=== PATIENT | female | born 1945 | race Caucasian/White ===

== ENCOUNTER → 2017-10-13 | Outpatient (CLI) | payer MEDICARE, BC ==
[~2017-10-13] MED LIST: Flonase 0.05% N16 GM; ROSU5 PO; Tessalon200 MG; Zegerid 40 MG1 EACH PO
[2017-10-15 06:00] LABS: Source Cervix
== END ==
LOC: LAB SHORT 14:40 → LAB 14:40
PROVIDERS: Family Medicine
DX: Z12.4 Encounter for screening for malignant neoplasm of cervix (principal)
CPT/HCPCS: G0145

== ENCOUNTER → 2020-06-18 | Outpatient (CLI) | payer MEDICARE, BC | END | disposition home or self-care (01) | LOC: LAB SHORT 17:09 → PLD 17:09 | DX: D48.5 Neoplasm of uncertain behavior of skin (principal) | CPT/HCPCS: 88305 ==

== ENCOUNTER → 2020-11-21 | Outpatient (CLI) | payer MEDICARE, BC | END | disposition home or self-care (01) | LOC: LAB 14:30 → LAB SHORT 14:30 | PROVIDERS: Family Medicine | DX: Z12.4 Encounter for screening for malignant neoplasm of cervix (principal) | CPT/HCPCS: G0145 ==

== ENCOUNTER → 2021-12-04 | Outpatient (CLI) | payer MEDICARE, BC | END | disposition home or self-care (01) | LOC: LAB SHORT 11:21 → LAB 11:21 → PLD 11:21 | DX: L57.0 Actinic keratosis (principal) | CPT/HCPCS: 88305 ==

== ENCOUNTER 2025-03-10 08:41 | Emergency (ER) | payer MEDICARE, BC ==
[~2025-03-10] VITALS: Ht 160 cm; Wt 70.8 kg
[2025-03-10 09:15] VITALS: BP 135/66
[2025-03-10] MEDS ORDERED: Ketorolac Tromethamine 15mg Vial IM ONE (09:35)
[2025-03-10] MEDS ORDERED: Voltaren100 GM TOP (10:58)
[2025-03-10] MEDS ORDERED: TIZA4 PO (10:58)
== END 2025-03-10 11:11 | disposition home or self-care (01) ==
LOC: ER 08:41
DX: M25.551 Pain in right hip (principal); E78.5 Hyperlipidemia, unspecified; Z79.51 Long term (current) use of inhaled steroids; Z79.899 Other long term (current) drug therapy
CPT/HCPCS: 96372; 99283-25; A9270; J1885